=== PATIENT | male | born 1955 | race Caucasian/White ===

== ENCOUNTER 2020-08-23 17:37 | Inpatient (IN) | payer OTHER ==
[~2020-08-23] VITALS: Ht 167.6 cm; Wt 65.9 kg
[2020-08-23 19:53] LABS: APTT 34.2 SECONDS (22.8-39.4); HEMATOCRIT 44.1 % (42.0-54.0); HEMOGLOBIN 14.6 g/dL (13.5-17.5); INR 1.4 (0.85-1.17); LYMPHOCYTE ABS# 0.85 10x3/uL (1.32-3.57); MCH 29.4 pg (26.0-34.0); MCHC 33.1 g/dL (31.0-37.0); MCV 88.7 fL (80.0-100.0); MEAN PLATELET VOLUME 8.8 fL (7.4-10.4); NEUTROPHIL ABS# 20.89 10x3/uL (1.78-5.38); PLATELET COUNT 337 10x3/uL (130-400); PROTIME 15.9 SECONDS (11.6-15.0); RBC 4.97 10x6/uL (4.20-6.10); WBC 23.9 10x3/uL (4.8-10.8)
[2020-08-23 20:06] LABS: CALC OSMOLALITY 266 mosm/kg (275-300); CALCIUM 9.2 mg/dL (8.5-10.1); CARBON DIOXIDE 28.8 mmol/L (21.0-32.0); CHLORIDE - SERUM 98 mmol/L (98-107); CREATININE - SERUM 1.3 mg/dL (0.6-1.3); GLUCOSE 103 mg/dL (74-106); POTASSIUM - SERUM 4.1 mmol/L (3.5-5.1); SODIUM 133 mmol/L (136-145); UREA NITROGEN 16 mg/dL (7-18); eGFR NON AFRICAN AMERICAN 59 mL/min (90-120)
[2020-08-23 20:23] LABS: ALBUMIN 3.3 g/dL (3.4-5.0); ALKALINE PHOSPHATASE 124 U/L (30-120); ALT (SGPT) 44 U/L (10-68); BILIRUBIN - TOTAL 1.24 mg/dL (0.2-1.3); CKMB 0.5 U/L (0.0-3.6); CREATINE KINASE 77 UL (21-232); PROTEIN - SERUM 8.1 g/dL (6.4-8.2)
[2020-08-23 20:26] LABS: TROPONIN-I < 0.017 ng/mL (0.000-0.060)
[2020-08-23 21:14] LABS: BILIRUBIN NEGATIVE (NEGATIVE); KETONE MODERATE mg/dL (NEGATIVE); NITRITE NEGATIVE (NEGATIVE); UROBILINOGEN NORMAL mg/dL (< 2)
[2020-08-23 21:17] LABS: WHITE CELLS - URINE >50 HPF (0-1)
[2020-08-23 21:25] LABS: BACTERIA FEW HPF (NONE SEEN)
[2020-08-23 21:48] LABS: LYMPHOCYTES 9 % (15-50); MONOCYTES 4 % (2-11); NEUTROPHILS 87 % (40-80); PLATELET ESTIMATE NORMAL
--- NOTE | 2020-08-23 23:21 | NUR ---
REPORT RECEIVED FROM VICKY IN ER, AWAITING PT'S ARRIVAL TO ROOM 3392.
[2020-08-24 00:12] LABS: INFLUENZA TYPE A NEGATIVE (NEGATIVE); INFLUENZA TYPE B NEGATIVE (NEGATIVE)
[2020-08-24 00:13] VITALS: BP 156/86
--- NOTE | 2020-08-24 00:37 | NUR ---
SPOKE WITH DAUGHTER, RADHA, JUSTINE PROVIDED, UPDATE GIVEN.
[2020-08-24 01:18] VITALS: BP 156/86; Ht 167.6 cm; Wt 65.9 kg
[2020-08-24 06:14] VITALS: BP 150/86
[2020-08-24 06:38] LABS: BASOPHILS 0.1 % (0-2); EOSINOPHILS 0 % (0-7); HEMATOCRIT 41.7 % (42.0-54.0); HEMOGLOBIN 13.8 g/dL (13.5-17.5); IMMATURE GRANULOCYTES 0.4 % (0-5); LYMPHOCYTE ABS# 0.46 10x3/uL (1.32-3.57); LYMPHOCYTES 2.2 % (15-50); MCH 29.2 pg (26.0-34.0); MCHC 33.1 g/dL (31.0-37.0); MCV 88.2 fL (80.0-100.0); MEAN PLATELET VOLUME 9.5 fL (7.4-10.4); MONOCYTES 3.6 % (2-11); NEUTROPHIL ABS# 19.73 10x3/uL (1.78-5.38); NEUTROPHILS 93.7 % (40-80); PLATELET COUNT 357 10x3/uL (130-400); RBC 4.73 10x6/uL (4.20-6.10); RDW 12.9 % (11.5-14.5); WBC 21.1 10x3/uL (4.8-10.8)
[2020-08-24 07:22] LABS: ALBUMIN 2.7 g/dL (3.4-5.0); ANION GAP 14.1 mmol/L (8-16); BILIRUBIN - TOTAL 0.63 mg/dL (0.2-1.3); CALCIUM 8.9 mg/dL (8.5-10.1); CARBON DIOXIDE 22.9 mmol/L (21.0-32.0); CREATININE - SERUM 1.1 mg/dL (0.6-1.3); MAGNESIUM - SERUM 2.2 mg/dL (1.8-2.4); PHOSPHOROUS 2.3 mg/dL (2.5-4.9); PROTEIN - SERUM 7.1 g/dL (6.4-8.2); URIC ACID 3.6 mg/dL (2.6-7.2)
[2020-08-24 07:29] LABS: C-REACTIVE PROTEIN 87.2 mg/dL (0.0-0.9)
[2020-08-24 08:50] LABS: ERYTHROCYTE SEDIMENTATION RATE 15 mm/hr (0-20)
[2020-08-24 09:37] VITALS: BP 162/86
[2020-08-24 17:08] VITALS: BP 161/96
[2020-08-24 20:52] VITALS: BP 137/83
[2020-08-25 05:41] VITALS: BP 141/76
[2020-08-25 05:54] LABS: BASOPHILS 0.1 % (0-2); EOSINOPHILS 0 % (0-7); HEMOGLOBIN 12.4 g/dL (13.5-17.5); IMMATURE GRANULOCYTES 0.4 % (0-5); LYMPHOCYTE ABS# 0.63 10x3/uL (1.32-3.57); LYMPHOCYTES 4.2 % (15-50); MCH 28.8 pg (26.0-34.0); MCHC 32.6 g/dL (31.0-37.0); MCV 88.2 fL (80.0-100.0); MEAN PLATELET VOLUME 9.3 fL (7.4-10.4); MONOCYTES 2.1 % (2-11); NEUTROPHIL ABS# 14.01 10x3/uL (1.78-5.38); NEUTROPHILS 93.2 % (40-80); PLATELET COUNT 398 10x3/uL (130-400); RBC 4.31 10x6/uL (4.20-6.10); RDW 13.2 % (11.5-14.5)
[2020-08-25 06:28] LABS: CALC OSMOLALITY 276 mosm/kg (275-300); CALCIUM 8.4 mg/dL (8.5-10.1); CARBON DIOXIDE 24.6 mmol/L (21.0-32.0); CHLORIDE - SERUM 106 mmol/L (98-107); GLUCOSE 140 mg/dL (74-106); MAGNESIUM - SERUM 2.3 mg/dL (1.8-2.4); PHOSPHOROUS 2.7 mg/dL (2.5-4.9); POTASSIUM - SERUM 4.1 mmol/L (3.5-5.1); SODIUM 136 mmol/L (136-145); eGFR NON AFRICAN AMERICAN 80 mL/min (90-120)
[2020-08-25 06:35] LABS: UREA NITROGEN 20 mg/dL (7-18)
[2020-08-25 09:28] VITALS: BP 133/83
--- NOTE | 2020-08-25 14:53 | NUR ---
RESTING IN BED WITH NADN. DENIES ANY PAIN OR DISCOMFORT. RESP EVEN AND UNLABORED. SKIN WARM AND DRY. WILL CONTINUE TO MONITOR.
[2020-08-25 16:32] VITALS: BP 130/81
--- NOTE | 2020-08-25 19:05 | NUR ---
REPORT RECEIVED, PT CARE ASSUMED. PT SITTING UP IN BED, AAOX4, WATCHING TV. REQUESTING ICE CREAM, PROVIDED. DENIES ANY OTHER NEEDS AT THIS TIME. BED IN LOWEST, SRX1, CL WITHIN REACH. CPOC.
[2020-08-25 20:30] VITALS: BP 168/92
[2020-08-26 00:30] VITALS: BP 139/77
[2020-08-26 04:30] VITALS: BP 122/86
[2020-08-26 05:33] LABS: BASOPHILS 0.1 % (0-2); EOSINOPHILS 0.1 % (0-7); HEMATOCRIT 37.7 % (42.0-54.0); HEMOGLOBIN 12.4 g/dL (13.5-17.5); IMMATURE GRANULOCYTES 0.9 % (0-5); LYMPHOCYTES 7.2 % (15-50); MCH 28.8 pg (26.0-34.0); MCHC 32.9 g/dL (31.0-37.0); MCV 87.7 fL (80.0-100.0); MEAN PLATELET VOLUME 8.8 fL (7.4-10.4); MONOCYTES 3.5 % (2-11); NEUTROPHIL ABS# 9.74 10x3/uL (1.78-5.38); NEUTROPHILS 88.2 % (40-80); PLATELET COUNT 396 10x3/uL (130-400); RDW 13.3 % (11.5-14.5)
[2020-08-26 05:39] LABS: WBC 11.1 10x3/uL (4.8-10.8)
[2020-08-26 05:47] LABS: ANION GAP 13.6 mmol/L (8-16); CALCIUM 8.5 mg/dL (8.5-10.1); CARBON DIOXIDE 24.6 mmol/L (21.0-32.0); CREATININE - SERUM 1.1 mg/dL (0.6-1.3); PHOSPHOROUS 3.1 mg/dL (2.5-4.9); POTASSIUM - SERUM 4.2 mmol/L (3.5-5.1)
[2020-08-26 08:00] VITALS: BP 154/95
[2020-08-26 11:16] VITALS: BP 174/86
[2020-08-26] MEDS ORDERED: LEVOFLOXACIN500 MG PO (12:16)
--- NOTE | 2020-08-26 14:02 | NUR ---
DISCHARGED PATIENT WITH DAUGHTER VIA ABULATION. DISCHARGE INSTRUCTIONS PROVIDED TO PATIENT. PATIENT AND DAUGHTER VERBALIZED UNDERSTANDING.
== END 2020-08-26 14:05 | disposition home or self-care (01) | DRG 690 ==
LOC: D.ER 17:37 → D.M2 22:06
PROVIDERS: Family Medicine; ADMIT Family Medicine; ATTEND Family Medicine
DX: N39.0 Urinary tract infection, site not specified (principal); E87.0 Hyperosmolality and hypernatremia; E86.0 Dehydration; I10 Essential (primary) hypertension; F17.200 Nicotine dependence, unspecified, uncomplicated; J45.909 Unspecified asthma, uncomplicated; R50.9 Fever, unspecified